=== PATIENT | male | born 1995 | race African-American/Black ===

== ENCOUNTER 2017-10-29 02:28 | Emergency (ER) | payer SELFPAY | END 2017-10-29 06:11 | disposition left against medical advice (07) | LOC: M ED 02:28 | DX: M79.641 Pain in right hand (principal) ==

== ENCOUNTER 2017-10-30 03:52 | Emergency (ER) | payer SELFPAY | END 2017-10-30 04:04 | disposition left against medical advice (07) | LOC: M ED 03:52 | DX: Z53.29 Procedure and treatment not carried out because of patient's decision for other reasons (principal) ==

== ENCOUNTER 2018-03-02 15:11 | Emergency (ER) | payer SELFPAY ==
[2018-03-02] MEDS: KETOROLAC TROMETHAMINE 10 MG TAB PO (15:45)
== END 2018-03-02 16:54 | disposition home or self-care (01) ==
LOC: M ED 15:11
DX: S60.221A Contusion of right hand, initial encounter (principal); W22.09XA Striking against other stationary object, initial encounter; Y92.481 Parking lot as the place of occurrence of the external cause; F17.210 Nicotine dependence, cigarettes, uncomplicated
CPT/HCPCS: 73130

== ENCOUNTER 2019-01-22 17:33 | Emergency (ER) | payer MEDICAID, SELFPAY ==
[~2019-01-22] VITALS: Ht 177.8 cm; Wt 70.6 kg
[2019-01-22 18:31] LABS: BASO # 0.1 10^3/uL (0.0-0.2); BASO % 0.8 % (0.0-1.0); EOS # 0.3 10^3/uL (0.0-0.5); EOS % 4.3 % (0.0-3.0); HEMOGLOBIN 15.4 g/dl (13.5-17.5); LYMPH # 2.1 10^3/uL (1.5-5.0); LYMPH % 32.2 % (24.0-44.0); MEAN CORPUSCULAR HEMOGLOBIN 34.4 pg (27.0-33.0); MEAN CORPUSCULAR HGB CONC 33.5 g/dl (32.0-36.5); MEAN CORPUSCULAR VOLUME 102.7 fl (80.0-96.0); MONO # 0.9 10^3/uL (0.0-0.8); NEUTROPHILS # 3.2 10^3/uL (1.5-8.5); NEUTROPHILS % 49.4 % (36.0-66.0); PLATELET COUNT, AUTOMATED 201 10^3/uL (150-450); RED BLOOD COUNT 4.48 10^6/uL (4.30-6.10); WHITE BLOOD COUNT 6.5 10^3/uL (4.0-10.0)
[2019-01-22 18:38] LABS: INFLUENZA A AMPLIFICATION NEGATIVE (NEGATIVE); INFLUENZA B AMPLIFICATION NEGATIVE (NEGATIVE)
[2019-01-22 19:02] LABS: CK-MB VALUE MASS 3.4 NG/ML (<3.6); CPK CREATINE PHOSPHOKINASE 246 U/L (39-308); MB/CK RELATIVE INDEX 1.38 (< OR =4); TROPONIN I < 0.02 NG/ML (< 0.10)
[2019-01-22 19:29] VITALS: BP 146/92
--- NOTE | 2019-01-23 06:52 | REP ---
Clinical: Acute chest pain . Comparison: None . Technique: PA and lateral. Findings: The mediastinum and cardiac silhouette are normal. The lung vick are clear and without acute consolidation, effusion, or pneumothorax. The skeletal structures are intact and normal. Impression: 1. No acute cardiopulmonary process. Electronically Signed by Pranav Maharaj MD 01/23/2019 06:44 A
--- NOTE | 2019-01-24 07:25 | ECGEPIP ---
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
== END 2019-01-22 19:55 | disposition home or self-care (01) ==
LOC: M ED 17:33
DX: J02.9 Acute pharyngitis, unspecified (principal); F17.200 Nicotine dependence, unspecified, uncomplicated

== ENCOUNTER 2019-09-10 17:01 | Emergency (ER) | payer SELFPAY ==
[~2019-09-10] VITALS: Ht 177.8 cm; Wt 70.2 kg
[2019-09-10 17:01] VITALS: BP 151/95
[2019-09-10] MEDS ORDERED: ACETAMINOPHEN 325 MG TAB PO ONE (18:15)
[2019-09-10] MEDS ORDERED: CETIRIZINE (ZyrTEC) 10 MG TAB PO ONE (18:15)
== END 2019-09-10 18:29 | disposition left against medical advice (07) ==
LOC: M ED 17:01
DX: R50.9 Fever, unspecified (principal); F17.200 Nicotine dependence, unspecified, uncomplicated

== ENCOUNTER → 2020-10-17 | Outpatient (CLI) | payer MEDICAID | LOC: M OUTALCOH 08:48 | PROVIDERS: ATTEND Psychiatry & Neurology Psychiatry | DX: Z13.39 Encounter for screening examination for other mental health and behavioral disorders (principal) ==

== ENCOUNTER 2021-08-09 04:29 | Emergency (ER) | payer MEDICAID ==
[~2021-08-09] VITALS: Ht 177.8 cm; Wt 72.7 kg
[2021-08-09 04:29] VITALS: BP 127/82
[2021-08-09 06:32] LABS: GC DNA AMPLIFICATION NEGATIVE (NEGATIVE)
== END 2021-08-09 07:14 | disposition left against medical advice (07) ==
LOC: M ED 04:29
DX: Z53.21 Procedure and treatment not carried out due to patient leaving prior to being seen by health care provider (principal)

== ENCOUNTER 2021-08-11 08:41 | Emergency (ER) | payer MEDICAID, OTHER ==
[~2021-08-11] VITALS: Ht 180.3 cm; Wt 72.5 kg
[2021-08-11] MEDS ORDERED: [UNRECOGNIZED DRUG - REMARK] PO (09:30)
[2021-08-11] MEDS ORDERED: metroNIDAZOLE (FLAGYL) 500MG TABLET PO ONE (10:40)
[2021-08-11] MEDS ORDERED: ONDANSETRON 4MG ORAL DISINTEGRATING TAB PO ONE (10:40)
[2021-08-11] MEDS ORDERED: cefTRIAXone 500MG VIAL (J0696 PER 250MG) IM ONE (10:40)
[2021-08-11] MEDS ORDERED: LIDOCAINE 1% SDV 5ML VIAL DILUENT ONE (10:40)
[2021-08-11 10:59] LABS: APPEARANCE, URINE HAZY (CLEAR); BACTERIA, URINE AUTO 1+ (NEGATIVE); BILIRUBIN, URINE AUTO NEGATIVE (NEGATIVE); BLOOD, URINE BLOOD NEGATIVE (NEGATIVE); COLOR, URINE YELLOW (YELLOW); GLUCOSE, URINE (UA) AUTO NEGATIVE (NEGATIVE); KETONE, URINE AUTO 1+ mg/dL (NEGATIVE); LEUKOCYTE ESTERASE, URINE AUTO NEGATIVE (NEGATIVE); MUCUS, URINE LARGE (NEGATIVE); NITRITE, URINE AUTO NEGATIVE (NEGATIVE); PROTEIN, URINE AUTO 1+ mg/dL (NEGATIVE); RBC, URINE AUTO 1 /HPF (0-3); SQUAMOUS EPITHELIAL CELL UR AU 0 /HPF (0-6); WBC, URINE AUTO 3 /HPF (0-3)
[2021-08-11 11:03] VITALS: BP 180/115
[2021-08-11] MEDS ORDERED: LISI10TA22 PO (11:35)
[2021-08-11] MEDS ORDERED: HYDR-3490 PO (11:35)
[2021-08-11 12:23] LABS: GC DNA AMPLIFICATION NEGATIVE (NEGATIVE)
== END 2021-08-11 11:40 | disposition home or self-care (01) ==
LOC: M ED 08:41
DX: Z20.2 Contact with and (suspected) exposure to infections with a predominantly sexual mode of transmission (principal); I10 Essential (primary) hypertension; F17.200 Nicotine dependence, unspecified, uncomplicated
CPT/HCPCS: 36415; 81001; 87389; 87661; 87810; 87850; 96372; 99283; J0696